=== PATIENT | male | born 1950 | race African-American/Black ===

== ENCOUNTER 2019-03-18 22:22 | Inpatient (IN) | payer OTHER ==
[~2019-03-18] VITALS: Ht 175.3 cm; Wt 71.6 kg
[2019-03-18] MEDS ORDERED: LEVOFLOXACIN 500MG 100 ML IV ONE (23:15)
[2019-03-18] MEDS ORDERED: SODIUM CHLORIDE 0.9% 500 ML IV ONE (23:15)
[2019-03-18] MEDS ORDERED: ONDANSETRON HCL 4 MG/2 ML VIAL IV ONE (23:30)
[2019-03-18 23:48] LABS: Basophils # (auto) 0 uL; Basophils % (auto) 0.4 % (0.0-2.0); Eosinophils # (auto) 0.1 uL; Eosinophils % (auto) 1.4 % (0.0-7.0); Hematocrit 38.8 % (41.0-53.0); Hemoglobin 12.9 g/dL (13.5-17.5); Lymphocytes # (auto) 1.8 uL; Lymphocytes % (auto) 31.9 % (10.0-50.0); Mean Corpuscular Hemoglobin 32.9 pg (28.0-32.0); Mean Corpuscular Hgb Conc. 33.1 g/dL (32.0-36.0); Mean Corpuscular Volume 99.4 fL (80.0-100.0); Monocytes # (auto) 0.5 uL; Monocytes % (auto) 9.5 % (0.0-12.0); Neutrophils # (auto) 3.2 uL; Neutrophils % (auto) 56.8 % (37.0-80.0); Nucleated Red Blood Cells % 0.1 %; Platelet Count (auto) 129 10^3/uL (140-450); Red Cell Distribution Width 15.8 % (11.8-14.3); White Blood Cell 5.6 10^3/uL (4.4-10.8)
[2019-03-19 00:07] LABS: Albumin 4.3 g/dL (3.4-5.0); Anion Gap 15 (5-15); Blood Urea Nitrogen 68 mg/dL (7-18); Calcium 9.2 mg/dL (8.5-10.1); Carbon Dioxide 18 mmol/L (21-32); Chloride 97 mmol/L (98-107); Glucose 105 mg/dL (74-106); Magnesium 2.8 mg/dL (1.6-2.6); Potassium 5.1 mmol/L (3.5-5.1); Sodium 130 mmol/L (136-145)
[2019-03-19 00:12] LABS: INR 0.88 (0.9-1.15); Partial Thromboplastin Time 22.1 sec (23.64-32.05)
[2019-03-19 00:13] LABS: Alanine Aminotransferase 18 U/L (16-61); Alkaline Phosphatase 100 U/L (45-117); Aspartate Aminotransferase 20 U/L (15-37); BUN/Creatinine Ratio 19.8; Bilirubin, Total 0.9 mg/dL (0.2-1.0); GFR African American 23 mL/min; GFR Non-African American 19 mL/min; Total Protein 8.1 g/dL (6.4-8.2)
[2019-03-19] MEDS ORDERED: LACTULOSE 20Gm/30ML SOLN PO ONE (01:45)
[2019-03-19] MEDS ORDERED: SODIUM CHLORIDE 0.9% 500 ML IV ONE ×2 (01:57→02:00)
[2019-03-19] MEDS ORDERED: ENOXAPARIN SOD 100 MG/1 ML SYRINGE SC ONE (02:30)
[2019-03-19] MEDS ORDERED: TEMAZEPAM 15 MG CAP PO PRN (03:45)
[2019-03-19] MEDS ORDERED: DOCUSATE SOD 100 MG CAP PO PRN (03:45)
[2019-03-19] MEDS ORDERED: HYDROcodone-ACET 5/325MG TAB PO PRN (03:45)
[2019-03-19] MEDS ORDERED: ONDANSETRON HCL 4 MG/2 ML VIAL IV PRN (03:45)
[2019-03-19] MEDS ORDERED: ACETAMINOPHEN 500 MG TAB PO PRN (03:45)
[2019-03-19] MEDS: SODIUM CHLORIDE 0.9% 1,000 ML IV SCH ×2 (04:53→14:54)
[2019-03-19 05:15] VITALS: BP 94/59
--- NOTE | 2019-03-19 05:15 | NUR ---
Telemetry admit from ER LEATHARADHA admitted to Telemetry unit after report received. Patient oriented to Radha De Luna, primary RN, unit, room, bed, and unit policies regarding patient care and visiting hours. Patient now on continuous telemetry monitoring, tele box #[id number] and telemetry reading on arrival to unit is Sinus Bradycardia. Patient weighed by bed scale and encouraged to call if they need something. All questions and concerns addressed, patient verbalized understanding.
[2019-03-19] MEDS ORDERED: LISI40TA PO (05:39)
[2019-03-19] MEDS ORDERED: METF-370 PO (05:39)
--- NOTE | 2019-03-19 05:45 | NUR ---
AMBULATION PATIENT AMBULATES TO BATHROOM WITH STANDBY ASSIST. STEADY GAIT NOTED. PATIENT REPORTED HAVING A BOWEL MOVEMENT.
[2019-03-19] MEDS: PANTOPRAZOLE 40 MG TAB PO SCH (06:17)
[2019-03-19 07:36] LABS: Basophils # (auto) 0 uL; Basophils % (auto) 0.4 % (0.0-2.0); Eosinophils # (auto) 0.1 uL; Hematocrit 36.7 % (41.0-53.0); Hemoglobin 12.2 g/dL (13.5-17.5); Lymphocytes # (auto) 1.6 uL; Lymphocytes % (auto) 37.5 % (10.0-50.0); Mean Corpuscular Hemoglobin 32.7 pg (28.0-32.0); Mean Corpuscular Hgb Conc. 33.2 g/dL (32.0-36.0); Mean Corpuscular Volume 98.7 fL (80.0-100.0); Monocytes # (auto) 0.6 uL; Monocytes % (auto) 13.2 % (0.0-12.0); Neutrophils % (auto) 46.9 % (37.0-80.0); Nucleated Red Blood Cells % 0.3 %; Platelet Count (auto) 119 10^3/uL (140-450); Red Blood Cells 3.72 10^6/uL (4.5-5.90); White Blood Cell 4.3 10^3/uL (4.4-10.8)
[2019-03-19 07:47] LABS: BUN/Creatinine Ratio 23.2; Calcium 9.1 mg/dL (8.5-10.1)
[2019-03-19 08:00] VITALS: BP 92/58
--- NOTE | 2019-03-19 08:00 | NUR ---
Opening Shift Note Assumed care of patient, awake and alert. No S/S of distress/SOB or pain. Patient feels very weak. Instructed on POC and to call for assist PRN, will continue to monitor for changes Q1hr and PRN.
--- NOTE | 2019-03-19 08:21 | NUR ---
I faxed clinical information to [facility] including ER notes, H&P, xrays, labs, vitals and medication list.
--- NOTE | 2019-03-19 08:56 | NUR ---
Paged monument setter helper hospitalist for critical K-6.0. Waiting for call back.
[2019-03-19] MEDS ORDERED: SODIUM BICARBONATE 8.4 % INJ 50ML VIAL IV ONE (09:15)
[2019-03-19] MEDS ORDERED: SODIUM ZIRCONIUM CYCL 10 GM PAK PO ONE (09:15)
[2019-03-19] MEDS ORDERED: DEXTROSE (50%) 50ML SYRG IV ONE (09:15)
[2019-03-19] MEDS ORDERED: InsuLIN REG 1unit/0.01ml Soln (100units/ml) IV ONE (09:15)
--- NOTE | 2019-03-19 09:16 | NUR ---
Received orders from Dr. Sherwood for correction of Potassium. Will carry out orders.
[2019-03-19] MEDS ORDERED: LISINOPRIL 10 MG TAB PO SCH (10:00)
--- NOTE | 2019-03-19 11:33 | NUR ---
Nutrition consult/assessment Notes please see attached link for complete assessment Est. Needs IBW [id number] kcal (25-30 kcal/kgBW), 57-72 gms pro (0.8-1.0 gms/kgBW r/t elev RFT ammonia). Will continue to monitor pertinent labs and reassess nutrient need prn Addendum: 03/19/19 at [address] Amended: Links added.
[2019-03-19 12:00] VITALS: BP_SYST 81
[2019-03-19 12:02] LABS: Urine Bacteria FEW /hpf (None Seen); Urine Blood Negative /uL (Negative); Urine Hyaline Cast FEW /lpf (0 - 2); Urine Specific Gravity 1.013 (1.001-1.035); Urine WBC 2 /hpf (0 - 3)
[2019-03-19 12:24] LABS: Amylase 169 U/L (25-115)
[2019-03-19 12:33] LABS: Lipase 1459 U/L (73-393)
[2019-03-19 12:34] LABS: Alcohol, Urine < 3.0 mg/dL (0-5); Amphetamine Screen, Urine NEGATIVE (NEGATIVE); Barbiturate Scree,Urine NEGATIVE (NEGATIVE); Benzodiazephine Screen, Urine NEGATIVE (NEGATIVE); Cannabinoid Screen, Urine NEGATIVE (NEGATIVE); Cocaine Screen, Urine NEGATIVE (NEGATIVE); Opiate Scree,Urine NEGATIVE (NEGATIVE); Phencyclidine Screen, Urine NEGATIVE (NEGATIVE)
[2019-03-19] MEDS ORDERED: THIAMINE 100mg/ml INJ (200mg/2ml VIAL) IV ONE (13:15)
[2019-03-19 16:00] VITALS: BP 106/53
[2019-03-19 22:00] VITALS: BP 99/61
[2019-03-20] MEDS: SODIUM CHLORIDE 0.9% 1,000 ML IV SCH ×2 (00:49→11:08)
[2019-03-20 05:00] VITALS: BP 91/50
[2019-03-20 05:00] LABS: Basophils # (auto) 0 uL; Basophils % (auto) 0.8 % (0.0-2.0); Eosinophils # (auto) 0.1 uL; Eosinophils % (auto) 2.3 % (0.0-7.0); Hematocrit 30.3 % (41.0-53.0); Hemoglobin 10.4 g/dL (13.5-17.5); Lymphocytes # (auto) 1.6 uL; Lymphocytes % (auto) 39.9 % (10.0-50.0); Mean Corpuscular Hemoglobin 33.5 pg (28.0-32.0); Mean Corpuscular Hgb Conc. 34.4 g/dL (32.0-36.0); Mean Corpuscular Volume 97.3 fL (80.0-100.0); Monocytes # (auto) 0.5 uL; Monocytes % (auto) 12.2 % (0.0-12.0); Neutrophils # (auto) 1.8 uL; Neutrophils % (auto) 44.8 % (37.0-80.0); Nucleated Red Blood Cells % 0.1 %; Platelet Count (auto) 97 10^3/uL (140-450); Red Blood Cells 3.12 10^6/uL (4.5-5.90); Red Cell Distribution Width 15.8 % (11.8-14.3); White Blood Cell 4.1 10^3/uL (4.4-10.8)
[2019-03-20 05:10] LABS: Magnesium 1.8 mg/dL (1.6-2.6); Potassium 4.3 mmol/L (3.5-5.1)
[2019-03-20 05:18] LABS: BUN/Creatinine Ratio 22.9; Bilirubin, Total 0.8 mg/dL (0.2-1.0); Calcium 8.5 mg/dL (8.5-10.1); Total Protein 5.8 g/dL (6.4-8.2)
[2019-03-20] MEDS: PANTOPRAZOLE 40 MG TAB PO SCH (06:14)
--- NOTE | 2019-03-20 07:35 | NUR ---
Opening Shift Note Assumed care of patient, awake and alert. No S/S of distress or SOB. Pt denies pain at this time. Bed in lowest and locked position with side rails up x2. Instructed Pt on POC and to call for assist PRN, will continue to monitor for changes Q1hr and PRN.
[2019-03-20 08:00] VITALS: BP 98/61
[2019-03-20 08:02] VITALS: BP 98/61
[2019-03-20] MEDS: ENSURE CLEAR Apple 8oz Carton PO SCH ×3 (11:09→18:00)
[2019-03-20 12:00] VITALS: BP 97/64
[2019-03-20] MEDS ORDERED: MULTIPLE VITAMIN 10 ML, MAGNESIUM SULF SDV 50% 8 MEQ, THIAMINE INJ 100 MG in D5W/SOD CH... IV SCH (12:00)
--- NOTE | 2019-03-20 13:37 | NUR ---
DR. CAGE AT BEDSIDE SPEAKING TO THE PATIENT ABOUT POC.
[2019-03-20 15:44] VITALS: BP 97/64
[2019-03-20 17:00] VITALS: BP 95/65
== END 2019-03-20 18:35 | disposition home or self-care (01) | DRG 438 ==
LOC: ER 22:22 → TELE 03-19 03:38 → TELE-CENTR 03-19 05:15
PROVIDERS: ADMIT Nurse Practitioner Family; ATTEND Internal Medicine
DX: K85.20 Alcohol induced acute pancreatitis without necrosis or infection (principal); N17.0 Acute kidney failure with tubular necrosis; E44.0 Moderate protein-calorie malnutrition; K86.0 Alcohol-induced chronic pancreatitis; I12.9 Hypertensive chronic kidney disease with stage 1 through stage 4 chronic kidney disease, or unspecified chronic kidney disease; I95.9 Hypotension, unspecified; E87.5 Hyperkalemia; J40 Bronchitis, not specified as acute or chronic; D64.9 Anemia, unspecified; E11.22 Type 2 diabetes mellitus with diabetic chronic kidney disease; E11.21 Type 2 diabetes mellitus with diabetic nephropathy; E88.09 Other disorders of plasma-protein metabolism, not elsewhere classified; F10.10 Alcohol abuse, uncomplicated; E86.0 Dehydration; N18.9 Chronic kidney disease, unspecified; Z72.0 Tobacco use; Z71.6 Tobacco abuse counseling; Z71.41 Alcohol abuse counseling and surveillance of alcoholic; Z87.442 Personal history of urinary calculi; Z68.23 Body mass index [BMI] 23.0-23.9, adult
CPT/HCPCS: 36415; 70450; 71045; 74176; 78582; 80048; 80053; 80061; 80307; 81001; 82140; 82150; 82962; 83036; 83605; 83690; 83735; 83880; 84132; 84443; 84484; 85025; 85379; 85610; 85730; 87040; 93005; 93970; 94761; 96365; 96372; 96375; 97163; G0378; J1815; J1956; J2405